=== PATIENT | male | born 1990 | race Caucasian/White ===

== ENCOUNTER 2018-09-08 21:07 | Emergency (ER) | payer OTHER ==
[2018-09-08 21:34] VITALS: O2SAT 99
[2018-09-08] MEDS ORDERED: Fluor-I-Strip/Ful-Flo OP ONE ×2 (22:03→22:31)
[2018-09-08] MEDS ORDERED: TETRACAINE 0.5% STERI-UNIT SOL OP STA (22:03)
[2018-09-08] MEDS ORDERED: Eye-Stream Solution OP ONE (22:03)
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
[2018-09-08] MEDS ORDERED: Eye-Stream Solution ONE (22:28)
[2018-09-08] MEDS ORDERED: TETRACAINE 0.5% STERI-UNIT SOL OP ONE (22:31)
[2018-09-08] MEDS ORDERED: Ciloxan OPHTH OP ONE (22:50)
[2018-09-08] MEDS ORDERED: GARAMYCIN 0.3% OPHTH SOL OP ONE (23:01)
[2018-09-08] MEDS ORDERED: NORCO 5/325 MG PO ONE (23:04)
[2018-09-08] MEDS ORDERED: Adacel Vial IM ONE ×2 (23:05→23:18)
[2018-09-08] MEDS ORDERED: NORCO 5/325 MG ONE (23:18)
[2018-09-08 23:48] VITALS: BP 156/85; PULSE 83
== END 2018-09-08 23:49 | disposition home or self-care (01) ==
LOC: ED 21:07
DX: S05.02XA Injury of conjunctiva and corneal abrasion without foreign body, left eye, initial encounter (principal); H57.12 Ocular pain, left eye; W22.8XXA Striking against or struck by other objects, initial encounter; T15.02XA Foreign body in cornea, left eye, initial encounter
CPT/HCPCS: 90471; 90715; 99283; A9270-GY

== ENCOUNTER 2020-05-08 13:52 | Emergency (ER) | payer OTHER ==
[2020-05-08 14:36] LABS: Absolute Neutrophil Ct (ANC) 3.92 (1.4-6.9); BASOPHIL % 0.3 % (0.0-0.4); Basophil (Absolute #) 0.02 (0-0.4); Eosinophil % 1.8 % (0.00-5.0); Eosinophil (Absolute #) 0.12 (0-0.5); Hematocrit 47.3 % (42-50); Hemoglobin 15.9 gm/dl (12.5-18.0); Lymphocyte (Absolute #) 1.89 (1.0-4.6); Lymphocytes % 28.7 % (24.0-44.0); Mean Cell Volume 91.1 fl (78-100); Mean Corpuscular Hemoglobin 30.6 pg (26-32); Mean Corpuscular Hgb Concent. 33.6 g/dl (32-36); Mean Platelet Volume 10.7 fl (7.5-11.0); Monocyte (Absolute #) 0.63 (0.0-1.3); Monocytes % 9.6 % (0.0-12.0); Neutrophil % 59.6 % (36.0-66.0); Platelet Count 177 K/mm3 (150-450); Red Blood Count 5.19 M/mm3 (4.1-5.6); Red Cell Distribution Width 12.9 % (11.5-14.0); White Blood Count 6.6 K/mm3 (4.0-10.5)
[2020-05-08 14:48] LABS: ALBUMIN 4.5 g/dL (3.5-5.0); ALKALINE PHOSPHATASE 62 U/L (38-126); BLOOD UREA NITROGEN 7 mg/dL (9-20); CHLORIDE 103 mmol/L (98-107); Calcium 9.7 mg/dL (8.4-10.2); Carbon Dioxide 30 mmol/L (22-30); EST GLOMERULAR FILTRATION RATE > 60.0 ML/MIN; Glucose 104 mg/dL (74-106); Potassium 4.6 mmol/L (3.5-5.1); SGOT/AST 20 U/L (17-59); SGPT/ALT 16 U/L (0-50); SODIUM 137 mmol/L (137-145); Total Protein 7.6 g/dL (6.3-8.2)
[2020-05-08 14:50] LABS: Barbiturate,Urine NEGATIVE (NEGATIVE); Benzodiazepine,Urine NEGATIVE (NEGATIVE); Cocaine,Urine NEGATIVE (NEGATIVE); Methadone,Urine NEGATIVE (NEGATIVE); Opiate,Urine NEGATIVE (NEGATIVE); PCP,Urine NEGATIVE (NEGATIVE); THC,Urine POSITIVE (NEGATIVE)
[2020-05-08 14:53] LABS: ACETAMINOPHEN < 10 ug/ml (10-30); ETHYL ALCOHOL < 10 mg/dL (0-10); SALICYLATE < 1.0 mg/dL (2-20)
[2020-05-08 15:58] LABS: Amphetamine,Urine POSITIVE (NEGATIVE)
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
[2020-05-08 20:34] VITALS: BP 145/91; PULSE 67
[2020-05-08 20:45] VITALS: O2SAT 100
== END 2020-05-08 20:42 | disposition short-term general hospital (02) ==
LOC: ED 13:52
DX: F41.9 Anxiety disorder, unspecified (principal); F19.10 Other psychoactive substance abuse, uncomplicated; R45.851 Suicidal ideations
CPT/HCPCS: 36415; 80053; 80307; 85025; 99285; G0480